=== PATIENT | female | born 1995 | race Two or more races ===

== ENCOUNTER 2021-05-27 08:00 | Outpatient (CLI) | payer OTHER | END 2021-05-27 23:59 | disposition home or self-care (01) | LOC: LAB.N 08:00 | PROVIDERS: ATTEND Physician Assistant Medical | DX: R05 Cough (principal); Z20.822 Contact with and (suspected) exposure to COVID-19 ==

== ENCOUNTER 2022-09-24 14:30 | Outpatient (CLI) | payer OTHER ==
[2022-09-24 15:12] VITALS: BP 104/62
--- NOTE | 2022-09-24 15:12 | SLEEP CARE CONSULTATION ---
Information from patient questionnaire entered by Pastora Wesley. I have reviewed and concur with the information entered by Pastora Wesley. This document represents the service I personally performed and the decisions made by me, Bisi Junior ARNP. History of Present Illness Service Date and Time: 09/24/2022 1430 Reason for Visit: New patient Chief Complaint: reports: Unrefreshed sleep, Snoring, Excessive daytime sleepiness, Observed pauses in breathing, Fatigue Date of Onset: 4 years Usual bedtime: 9 pm weekdays; weekends midnight Time it takes to fall asleep: 30 minutes Snores at night: Yes Observed to quit breathing while asleep: Yes Sleeps alone due to snoring: No Number of times waking at night: not sure- 1-5 times on average Reasons for waking at night: reports: Choking (3-4 times a week), Other (strange/intense dreams). denies: Snoring, Gasping for air Toss, Turn, or Twitch while sleeping: Yes Recalls having dreams: Yes Usually gets out of bed at: 5 AM on work days; 10 AM on weekends Feels refreshed in the morning: No Morning headache: Yes (3 times a week) Sleepy or fatigued during the day: Yes Ever fallen asleep while driving: No Takes day naps: Yes (weekend usually) Dreams during day naps: Yes Prior sleep studies: No Additional HPI information: I had the pleasure of seeing CAIO RUTHERFORD today regarding the possibility of her having a sleep disorder. Her current complaints are excessive daytime sleepiness, fatigue, observed pauses in breathing, snoring and unrefreshed sleep. She states she is waking up coughing and like she is not getting enough air. She is waking up feeling unrefreshed. She has been told that she snores by her partner. Her partner did wake her up the other night because she has having pauses in breathing followed by shallow breathing. He wanted to know if she was okay. She says her father has severe sleep apnea and is using a PAP machine. She states she does have difficulty swallowing. She states she has to drink water to swallow her food at first or spit out first 1-2 bites. She states her mother has a "twisted esophagus" and has similar difficulties swallowing. - Parasomnia Symptoms Ever been unable to move upon waking from sleep: Yes (2 times a year) Walks in sleep: No Talks in sleep: Yes Ever acted out dreams in sleep: Yes (small movements to thrashing or crying) Ever felt weak in the knees when startled or emotional: Yes (has not fallen to ground) Bothered by creepy, crawly, restless sensations in legs: No Problems with memory or concentration: Yes (both) Subjective Initial Mcrae Sleepiness Scale score: 10 (08/2022) Past Medical History Past Medical History: reports: Anxiety Social History The patient's occupation is a [employer]. Patient is Single and lives in . Have you smoked in the past 12 months: No Alcohol use: Yes Alcohol amount and frequency: 3 drinks weekends Caffeine use: Yes Caffeine amount and frequency: 1 cup coffee daily Family History Family history of sleep disordered breathing: Yes Family Hx Sleep Apnea: Father: Snoring, Sleep apnea - Treated, Sibling: Snoring Allergies and Home Medications Drug allergies reviewed: Yes (NKDA) Home medication list reviewed: Yes Allergy and home medication list: Lexapro, 10 mg daily Review of Systems Weight gain over past 5 years: 10 Cardiovascular: reports: irregular heart rate or pulse (daily, may be associated with anxiety; only happens when walking). denies: high blood pressure Respiratory: denies: shortness of breath Gastrointestinal: reports: difficulty swallowing (when eating; mother has twisted esophagus) Neurological: denies: headaches, head trauma Psychiatric: reports: anxiety, depression. denies: Attention Deficit Hyperactivity Ear/Nose/Throat: reports: wisdom teeth removed. denies: tonsillectomy Endocrine: denies: thyroid disease Physical Exam Vital signs obtained and entered by: PASTORA Ramirez MA Blood Pressure: 104/62 (LEFT ARM) Cuff size: regular Heart Rate: 64 O2 Saturation: 99 Height: 5 ft 5 in Weight: 170 lb 12.8 oz Body Mass Index: 28.4 BMI Classification: Overweight Neck circumference: 14.25 Mouth and throat: narrow oropharynx Soft palate: long Hard palate: normal Uvula: normal Uvula visualization: 25% Mallampati Class III Tongue: enlarged in size with teeth escamilla on lateral edges Tonsils: 1+ Neck: normal w/o lymphadenopathy or thyromegaly Heart: regular rate and rhythm Lungs: clear bilaterally Impression and Plan 1. Suspected Obstructive Sleep Apnea-Hypopnea Syndrome, as suggested by a history of loud and irregular snoring, observed cessation of breath while asleep, gasping or choking in sleep, morning headache, unrefreshed sleep, cognitive impairment, and excessive daytime sleepiness. Narrow oropharynx and obesity are common predisposing factors for obstructive sleep apnea-hypopnea syndrome. I recommend proceeding to polysomnography to confirm the diagnosis and to assess severity. If the patient has significant sleep disordered breathing, a manual CPAP titration study will also be performed to find the optimal treatment pressure. I informed the patient of what the sleep studies involve and after some discussion, obtained agreement to proceed. The pathophysiology of obstructive sleep apnea-hypopnea syndrome was discussed with the patient and health risks of cardiovascular and cerebrovascular disease if not treated. Risks of drowsy driving discussed in detail and patient advised to avoid long distance driving and to tack puller machine at the first sign of drowsiness. Patient agreed to plan. * Schedule polysomnography * Avoid long distance driving or driving when feeling sleepy. * Avoid alcohol, sedative and muscle relaxant around bedtime. * Attempt to lose weight. * Review instructions provided by trained office staff on how to prepare for the sleep study. * Return for follow-up after sleep study completed. Counseling Topics: Weight loss health impact Visit Type: In Office Time Spent with Patient (minutes): 31 Provider Statement: I spent 100% of the Face to Face Visit with the patient with greater than 50% spent counseling the patient and coordination of care.
== END 2022-09-24 14:31 | disposition home or self-care (01) ==
LOC: SC 14:30
PROVIDERS: ATTEND Nurse Practitioner Family
DX: R06.83 Snoring (principal); G47.8 Other sleep disorders; R06.81 Apnea, not elsewhere classified; R51.9 Headache, unspecified; G47.10 Hypersomnia, unspecified; R53.83 Other fatigue; E66.3 Overweight; Z68.28 Body mass index [BMI] 28.0-28.9, adult
CPT/HCPCS: 99203; 99212

== ENCOUNTER 2023-01-06 15:17 | Emergency (ER) | payer OTHER ==
[2023-01-06 15:28] LABS: BASOPHILS # (AUTO) 0.1 10^3/uL (0.0-0.1); BASOPHILS % (AUTO) 1.5 %; EOSINOPHILS # (AUTO) 0.6 10^3/uL (0.0-0.7); EOSINOPHILS % (AUTO) 9.2 %; HCT - HEMATOCRIT 41.5 % (37.0-47.0); HGB - HEMOGLOBIN 14.1 g/dL (12.0-16.0); LYMPHOCYTES # (AUTO) 2.3 10^3/uL (1.5-3.5); MEAN CORPUSCULAR HEMOGLOBIN 30.4 pg (27.0-31.0); MEAN CORPUSCULAR VOLUME 89.4 fL (81.0-99.0); MEAN PLATELET VOLUME 9.4 fL (7.9-10.8); MONOCYTES # (AUTO) 0.3 10^3/uL (0.0-1.0); MONOCYTES % (AUTO) 4.2 %; NEUTROPHILS # (AUTO) 2.8 10^3/uL (1.5-6.6); NEUTROPHILS % (AUTO) 46.9 %; PLT - PLATELET COUNT 291 10^3/uL (130-450); RED BLOOD COUNT 4.64 10^6/uL (4.20-5.40); RED CELL DISTRIBUTION WIDTH 12.4 % (12.0-15.0)
[2023-01-06 15:40] LABS: ALBUMIN 4.4 g/dL (3.2-5.5); ALBUMIN/GLOBULIN RATIO 1.3 (1.0-2.2); BILIRUBIN,TOTAL 0.7 mg/dL (0.2-1.0); CALCIUM 8.8 mg/dL (8.5-10.3); CREATININE 0.7 mg/dL (0.4-1.0); POTASSIUM 3.7 mmol/L (3.5-5.0); TOTAL PROTEIN 7.8 g/dL (6.7-8.2)
[2023-01-06] MEDS ORDERED: iohexoL-300 100 ML VIAL ONE (16:39)
--- NOTE | 2023-01-06 16:57 | ED Physician Documentation ---
PD HPI ABD PAIN - Stated complaint Stated Complaint: LOWER RT ABD PX - Chief complaint Chief Complaint: Abd Pain - History obtained from History obtained from: Patient - History of Present Illness Timing - onset: Last night Timing - duration: Days (1) Timing - details: Gradual onset Quality: Aching, Pain Location: RLQ Improved by: Laying still Worsened by: Moving, Palpation Associated symptoms: No: Fever, Vomiting, Diarrhea, Constipation, Melena, Hematochezia - Additional information Additional information: 27-year-old female presents to the emergency department with right lower qu adrant abdominal pain. She states that started as a generalized abdominal ache, points to the periumbilical area, she states that over the last 24 hours has settled in the right lower quadrant. She was seen at the walk-in clinic earlier today. Negative urinalysis and negative hCG. She was sent here for further evaluation. LMP was about 1 month ago. She does not have any surgical history. No nausea or vomiting. Decreased appetite today. No fevers. No chills. No vaginal bleeding or discharge. No STD exposure Review of Systems Constitutional: denies: Fever, Chills Nose: denies: Rhinorrhea / runny nose Cardiac: denies: Chest pain / pressure, Palpitations Respiratory: denies: Dyspnea, Cough GI: denies: Nausea, Vomiting, Diarrhea Skin: denies: Rash Musculoskeletal: denies: Neck pain, Back pain Neurologic: denies: Headache PD PAST MEDICAL HISTORY - Past Medical History Past Medical History: Yes Psych: Depression - Present Medications Home Medications: Ambulatory Orders Medication Instructions Recorded Confirmed Escitalopram [Lexapro] See Rx Instructions .ROUTE .COMPLEX 09/24/22 09/24/22 - Allergies Allergies/Adverse Reactions: Allergies Allergy/AdvReac Type Severity Reaction Status Date / Time No Known Drug Allergies Allergy Verified 01/06/23 15:29 - Living Situation Living Situation: reports: With family Living Arrangement: reports: At home - Social History Does the pt have substance abuse?: No - Family History Family history: reports: Non contributory PD ED PE NORMAL - Vitals Vital signs reviewed: Yes - General General: Alert and oriented X 3, No acute distress - HEENT HEENT: PERRL, Moist mucous membranes - Neck Neck: Supple, no meningeal sign - Cardiac Cardiac: RRR, Strong equal pulses - Respiratory Respiratory: No respiratory distress, Clear bilaterally - Abdomen Abdomen: Soft, Non distended, Other (Tender to palpation right lower quadrant at McBurney's point. No peritoneal signs. Positive Rovsing. Positive obturator.) - Back Back: No CVA TTP, No spinal TTP - Derm Derm: Warm and dry - Extremities Extremities: No edema, No calf tenderness / cord - Neuro Neuro: Alert and oriented X 3 - Psych Psych: Normal mood, Normal affect Results - Vitals Vitals: Vital Signs - 24 hr 01/06/23 01/06/23 15:26 18:26 Temperature 36.9 C Heart Rate 64 64 Respiratory 16 14 Rate Blood Pressure 112/62 102/67 O2 Saturation 100 100 Oxygen O2 Source Room air - Labs Labs: Laboratory Tests 01/06/23 01/06/23 01/06/23 15:23 15:23 17:10 WBC 6.0 RBC 4.64 Hgb 14.1 Hct 41.5 MCV 89.4 MCH 30.4 MCHC 34.0 RDW 12.4 Plt Count 291 MPV 9.4 Neut # (Auto) 2.8 Lymph # (Auto) 2.3 Petroleum # (Auto) 0.3 Eos # (Auto) 0.6 Baso # (Auto) 0.1 Absolute Nucleated RBC 0.00 Nucleated RBC % 0.0 Sodium 136 Potassium 3.7 Chloride 104 Carbon Dioxide 24 Anion Gap 8.0 BUN 15 Creatinine 0.7 Estimated GFR (MDRD) 100 Glucose 92 Calcium 8.8 Total Bilirubin 0.7 AST 18 ALT 19 Alkaline Phosphatase 60 Total Protein 7.8 Albumin 4.4 Globulin 3.4 Albumin/Globulin Ratio 1.3 Lipase 41 Urine Color YELLOW Urine Clarity CLEAR Urine pH 5.5 Ur Specific [place] >=1.030 H Urine Protein NEGATIVE Urine Glucose (UA) NEGATIVE Urine Ketones 15 H Urine Occult Blood MODERATE H Urine Nitrite NEGATIVE Urine Bilirubin NEGATIVE Urine Urobilinogen 0.2 (NORMAL) Ur Leukocyte Esterase NEGATIVE Urine RBC 0-5 Urine WBC 4-5 Ur Squamous Epith Cells FEW Squamous Urine Bacteria Many H Ur Microscopic Review INDICATED Urine Culture Comments NOT INDICATED Urine HCG, Qual 01/06/23 17:10 WBC RBC Hgb Hct MCV MCH MCHC RDW Plt Count MPV Neut # (Auto) Lymph # (Auto) Petroleum # (Auto) Eos # (Auto) Baso # (Auto) Absolute Nucleated RBC Nucleated RBC % Sodium Potassium Chloride Carbon Dioxide Anion Gap BUN Creatinine Estimated GFR (MDRD) Glucose Calcium Total Bilirubin AST ALT Alkaline Phosphatase Total Protein Albumin Globulin Albumin/Globulin Ratio Lipase Urine Color Urine Clarity Urine pH Ur Specific [place] Urine Protein Urine Glucose (UA) Urine Ketones Urine Occult Blood Urine Nitrite Urine Bilirubin Urine Urobilinogen Ur Leukocyte Esterase Urine RBC Urine WBC Ur Squamous Epith Cells Urine Bacteria Ur Microscopic Review Urine Culture Comments Urine HCG, Qual NEGATIVE - Rads (name of study) CT abdomen pelvis Relevant Findings:: Final report received, See rad report Pelvic ultrasound Relevant Findings:: Final report received, See rad report PD Medical Decision Making - ED course Complexity details: reviewed results, re-evaluated patient (Abdomen is soft, nontender nondistended on serial exam), considered differential, d/w patient ED course: 27-year-old female with abdominal pain, unclear etiology. CBC, ER abdominal panel and urinalysis do not show any significant abnormalities. There are bacteria in her urine, but she does not have any UTI symptoms. And there are squamous cells, likely contaminant. Her CT scan shows a normal appendix. Her pelvic ultrasound does show a 2.3 cm left ovarian dominant cyst. Right ovary unremarkable. There is a small amount of free fluid in the pelvis. Patient is very well-appearing, nontoxic. Afebrile. Tolerating p.o. without difficulty. We will have her follow-up with her doctor for further care and return if she worsens. Patient counseled regarding signs and symptoms for which I believe and urgent re-evaluation would be necessary. Patient with good understanding of and agreement to plan and is comfortable going home at this time This document was made in part using voice recognition software. While efforts are made to proofread this document, sound alike and grammatical errors may occur. Departure - Departure Disposition: 01 Home, Self Care Clinical Impression: Abdominal pain Qualifiers: Abdominal location: unspecified location Qualified Code(s): R10.9 - Unspecified abdominal pain Condition: Good Instructions: ED Abdominal Pain Female Non-Specific Abdominal Pain Follow-Up: JC QUINONES MD [Primary Care Provider] - Within 1 week Comments: Please follow-up with your doctor for further care. Your abdomen pelvis CT show a normal appendix. Your ultrasound shows a 2 cm left-sided ovarian cyst and a small amount of free fluid in your pelvis. As well that you had a small cyst rupture that is causing your abdominal/pelvic pain. Your laboratory testing is normal. Your urinalysis does not show any acute abnormalities either. This should improve over the next 1 to 2 days. Please return if you worsen. Discharge Date/Time: 01/06/23 19:22
[2023-01-06 17:30] LABS: BILIRUBIN,URINE NEGATIVE (NEGATIVE); GLUCOSE, URINE (UA) NEGATIVE (NEGATIVE); KETONES,URINE (UA) 15 mg/dL (NEGATIVE); LEUKOCYTE ESTERASE, URINE NEGATIVE (NEGATIVE); NITRITE,URINE NEGATIVE (NEGATIVE); OCCULT BLOOD,URINE MODERATE (NEGATIVE); PH,URINE 5.5 PH (5.0-7.5); PROTEIN,URINE NEGATIVE (NEGATIVE); UROBILINOGEN,URINE 0.2 (NORMAL) E.U./dL (NORMAL)
[2023-01-06 17:34] LABS: HCG UR QUAL NEGATIVE
[2023-01-06 17:56] LABS: CLARITY,URINE CLEAR (CLEAR)
[2023-01-06 17:58] LABS: BACTERIA,URINE Many /HPF (None Seen); RBC,URINE 0-5 /HPF (0-5); SQUAMOUS EPITHELIAL CELL,UR FEW Squamous (<= Few)
--- NOTE | 2023-01-06 18:06 | CT Report ---
PROCEDURE: ABDOMEN/PELVIS W INDICATIONS: RLQ abd pain CONTRAST: 100mL Omni 300 TECHNIQUE: After the administration of IV contrast, 5 mm thick sections acquired from the diaphragms to the symp hysis. 5 mm thick coronal and sagittal reformats were acquired. For radiation dose reduction, the f ollowing was used: automated exposure control, adjustment of mA and/or kV according to patient size. COMPARISON: None. FINDINGS: Image quality: Excellent. ABDOMEN: Lung bases: Lung bases are clear. Heart size is normal. Small hiatal hernia. Solid organs: Liver and spleen are normal in size and enhancement. Gallbladder Biliary system is no n dilated. Pancreas enhances normally. No adrenal nodules. Kidneys demonstrate normal size and enh ancement, without hydronephrosis. Peritoneum and bowel: Appendix is retrocecal and demonstrates normal caliber measuring 4 mm. There i s air collection within the appendix. Bowel loops demonstrate normal wall thickness and caliber. No free fluid or air. Nodes and vessels: No retroperitoneal or mesenteric adenopathy by size criteria. Aorta and inferior vena cava are normal in size. Miscellaneous: No ventral hernias. PELVIS: Genitourinary: Bladder wall thickness is normal. Uterus and ovaries are normal. There is a trace am ount of free fluid in the cul-de-sac. Miscellaneous: No inguinal hernias or adenopathy. Bones: No suspicious bony lesions. No vertebral body compression fractures. IMPRESSION: 1. A cause for right lower quadrant pain is not identified on CT. 2. Normal appendix. 2. A trace amount of free fluid in the cul-de-sac, which is probably within physiological limits. If there is clinical suspicion for gynecological cause of right lower quadrant pain, pelvic ultrasound c an be obtained. Reviewed by: Elina Mora MD on 01/06/2023 5:05 PM NEGIN Approved by: Elina Mora MD on 01/06/2023 5:05 PM AKDT Station ID: [id number]
[2023-01-06 18:26] VITALS: BP 102/67
[2023-01-06] MEDS: iohexoL-300 100 ML VIAL IVP ONE (19:13)
--- NOTE | 2023-01-06 19:39 | Ultrasound Report ---
PROCEDURE: Pelvic w/Doppler Limited INDICATIONS: pelvic pain, R TECHNIQUE: Real-time transabdominal scanning was performed of the pelvic organs, with image documentation. Dopp ler interrogation was performed of the ovaries bilaterally. COMPARISON: 01/06/2023 FINDINGS: The uterine body measures 3.4 x 5.0 x 7.5 cm. No uterine mass. Left ovary measures 1.9 x 3.1 x 4.0 cm . Left ovarian dominant cyst measuring 2.3 cm with other smaller subcentimeter cysts present. Right o vary unremarkable measuring 2.0 x 3.0 x 3.6 cm. No findings of torsion in either ovary. Vascular Dopp ler signal is demonstrated to both ovaries. Trace physiologic free fluid. IMPRESSION: Normal study. Reviewed by: Josué Salcido MD on 01/06/2023 7:38 PM PDT Approved by: Josué Salcido MD on 01/06/2023 7:38 PM PDT Station ID: [id number]
== END 2023-01-06 19:22 | disposition home or self-care (01) ==
LOC: ED 15:17
DX: R10.31 Right lower quadrant pain (principal)
CPT/HCPCS: 36415; 74177; 76856; 80053; 81001; 81025; 83690; 85025; 93976; 99283; 99284; Q9967; 81003; 87086

== ENCOUNTER 2024-02-04 12:53 | Emergency (ER) | payer OTHER ==
[2024-02-04 13:05] VITALS: BP 119/59; O2SAT 100
[2024-02-04 13:21] LABS: HCG UR QUAL NEGATIVE
--- NOTE | 2024-02-04 14:54 | Ultrasound Report ---
PROCEDURE: Pelvic w/Doppler Complete INDICATIONS: pelvic pain, R TECHNIQUE: Real-time scanning was performed of the pelvic organs, with image documentation. Doppler interrogati on was performed of the ovaries bilaterally. COMPARISON: 01/06/2023 FINDINGS: Uterus: Uterus is anteverted and normal in size at 7.6 x 4.0 x 5.0 cm. The myometrium is homogeneou s. The endometrium measures 7.3 mm in combined thickness. No uterine fibroids. Ovaries: The right ovary measures 4.2 x 2.3 x 2.4 cm, with a calculated ovarian volume of 12.1 cc. The left ovary measures 4.1 x 2.0 x 2.9 cm, with a calculated ovarian volume of 12.4 cc. Appropriate blood flow to the ovaries with Doppler interrogation. Less than 12 follicles can be seen in each o vary. No adnexal masses are seen. No cystic lesions measuring greater than 3 cm. Other: No pathologic free abdominal or pelvic fluid. IMPRESSION: Ovaries are normal in appearance with normal Doppler blood flow. Uterus is normal in appearance. Reviewed by: Caleb Gloria MD on 02/04/2024 2:53 PM PDT Approved by: Caleb Gloria MD on 02/04/2024 2:53 PM PDT Station ID: [id number]
[2024-02-04 15:08] LABS: BILIRUBIN,URINE NEGATIVE (NEGATIVE); GLUCOSE, URINE (UA) NEGATIVE (NEGATIVE); KETONES,URINE (UA) 40 mg/dL (NEGATIVE); LEUKOCYTE ESTERASE, URINE NEGATIVE (NEGATIVE); NITRITE,URINE NEGATIVE (NEGATIVE); OCCULT BLOOD,URINE LARGE (NEGATIVE); PROTEIN,URINE NEGATIVE (NEGATIVE); UROBILINOGEN,URINE 0.2 (NORMAL) E.U./dL (NORMAL)
[2024-02-04 15:09] LABS: CLARITY,URINE HAZY (CLEAR)
[2024-02-04 15:22] LABS: BACTERIA,URINE Rare /HPF (None Seen); SQUAMOUS EPITHELIAL CELL,UR FEW Squamous (<= Few); WBC,URINE 0-3 /HPF (0-5)
--- NOTE | 2024-02-04 15:22 | ED Physician Documentation ---
PD HPI ABD PAIN - Stated complaint Stated Complaint: - Chief complaint Chief Complaint: Abd Pain - History obtained from History obtained from: Patient - Additional information Additional information: 28yo with hx ovarian cysts. Sudden onset r pelvic pain at 0800 today, assoc with vomiting. No fever. No urinary c/o. Has had irregular menses lately. No contraception. PD PAST MEDICAL HISTORY - Past Medical History Past Medical History: Yes Psych: Depression - Past Surgical History Past Surgical History: No - Present Medications Home Medications: Ambulatory Orders Medication Instructions Recorded Confirmed Escitalopram [Lexapro] See Rx Instructions .ROUTE .COMPLEX 09/24/22 09/24/22 HYDROcod/ACETAM 5/325 [Amity 5/325] 1 - 2 tab PO Q6H PRN #7 tablet 02/04/24 Ondansetron Odt [Zofran] 4 mg TL Q6H PRN #10 tablet 02/04/24 - Allergies Allergies/Adverse Reactions: Allergies Allergy/AdvReac Type Severity Reaction Status Date / Time No Known Drug Allergies Allergy Verified 02/04/24 12:54 - Social History Does the pt smoke?: No Smoking Status: Never smoker Does the pt drink ETOH?: No Does the pt have substance abuse?: No - Immunizations Immunizations are current?: Yes - POLST Patient has POLST: No PD ED PE NORMAL - Vitals Vital signs reviewed: Yes - General General: Alert and oriented X 3, No acute distress - Abdomen Abdomen: Normal bowel sounds, Soft, Non tender Results - Vitals Vitals: Vital Signs - 24 hr 02/04/24 12:55 Temperature 36.8 C Heart Rate 75 Respiratory 16 Rate Blood Pressure 119/59 L O2 Saturation 100 Oxygen O2 Source Room air - Labs Labs: Laboratory Tests 02/04/24 02/04/24 13:10 13:10 Urine Color YELLOW Urine Clarity HAZY Urine pH 6.0 Ur Specific [place] 1.020 Urine Protein NEGATIVE Urine Glucose (UA) NEGATIVE Urine Ketones 40 H Urine Occult Blood LARGE H Urine Nitrite NEGATIVE Urine Bilirubin NEGATIVE Urine Urobilinogen 0.2 (NORMAL) Ur Leukocyte Esterase NEGATIVE Urine RBC 6-10 H Urine WBC 0-3 Ur Squamous Epith Cells FEW Squamous Urine Bacteria Rare Ur Microscopic Review INDICATED Urine Culture Comments NOT INDICATED Urine HCG, Qual NEGATIVE - Rads (name of study) pelvic sono Relevant Findings:: Final report received PD Medical Decision Making - ED course ED course: She presents with improved sudden onset pelvic pain with negative ultrasonography. Could be ruptured cyst? Urinalysis having blood in it and test was negative. She has a benign exam. Does not seem like appendicitis given the time course and improvement. Given close return precautions. Departure - Departure Disposition: 01 Home, Self Care Clinical Impression: Pelvic pain in female Condition: Good Record reviewed to determine appropriate education?: Yes Instructions: ED Pelvic Pain [facility] Follow-Up: [facility] [Provider Group] Prescriptions: HYDROcod/ACETAM 5/325 [Amity 5/325] 1 - 2 tab PO Q6H PRN #7 tablet PRN Reason: Pain Ondansetron Odt [Zofran] 4 mg TL Q6H PRN #10 tablet PRN Reason: Nausea / Vomiting Comments: The ultrasound is normal so suspect cyst already ruptured. Return if worse or not better over the next 24 hours. Followup with lead network architect regarding irregular menses. [facility]: PCP List Discharge Date/Time: 02/04/24 15:39
[2024-02-04] MEDS: KETOROLAC 60 MG/2 ML VIAL IM STA (15:26)
[2024-02-04] MEDS: ONDANSETRON ODT 4 MG TABLET TL STA (15:26)
== END 2024-02-04 15:39 | disposition home or self-care (01) ==
LOC: ED 12:53
DX: R10.2 Pelvic and perineal pain (principal); Z79.899 Other long term (current) drug therapy
CPT/HCPCS: 76856; 81001; 81025; 93975; 96372; 99284; Q0162; 81003; 87086

== ENCOUNTER 2025-08-24 23:12 | Inpatient (IN) ==
[2025-08-25] MEDS ORDERED: CARBOPROST TROMETHAMINE 250 MCG/ML VIAL IM PRN
[2025-08-25] MEDS ORDERED: DOCUSATE SODIUM 100 MG CAPSULE PO PRN
[2025-08-25] MEDS ORDERED: SODIUM CHLORIDE FLUSH 0.9% 10 ML SYRINGE IVP PRN
[2025-08-25] MEDS ORDERED: TERBUTALINE 1 MG/ML VIAL SUBQ PRN
[2025-08-25] MEDS ORDERED: ACETAMINOPHEN 500 MG TABLET PO PRN
[2025-08-25] MEDS ORDERED: SODIUM CHLORIDE FLUSH 0.9% 10 ML SYRINGE IVP SCH
[2025-08-25] MEDS ORDERED: OXYTOCIN 10 UNIT/ML VIAL IM PRN
[2025-08-25] MEDS ORDERED: ONDANSETRON ODT 4 MG TABLET PO PRN
[2025-08-25] MEDS ORDERED: TRANEXAMIC ACID IN NACL 1,000 MG/100 ML BAG IV PRN
--- NOTE | 2025-08-25 00:08 | PROVIDER PROGRESS NOTE ---
HPI Current : Vital Signs Temperature 36.6 C 08/24/25 23:30 Pulse Rate 82 08/24/25 23:30 Respiratory Rate 20 08/24/25 23:30 Blood Pressure 106/79 08/24/25 23:30 O2 Saturation 100 08/24/25 23:30 Plan Plan: 29 yo @ 39+2 weeks gestation presents to L&D for triage. was 3/80 in clinic earlier today. Now 4/90/-2, intact by provider exam. Reactive NST. FHR 145, moderate variability, + accelerations, - decelerations. CTX q2-3 palpating strongly. Rating pain 7/10vps. Will admit as inpatient.
--- NOTE | 2025-08-25 00:13 | HISTORY & PHYSICAL EXAMINATION ---
Admit History Smoking Status: Never smoker Other Maternal History Other Maternal History: HPI: This 29 yo @39+2 weeks by LMP and confirmed by 9+1 week ultrasound. She came in for her clinic appointment and had her membranes swept and she was 2-3cm. Since getting her membranes swept, her contractions had become stronger and closer together. Upon arrival her cervix was 4/90/-2 and vertex with intact membranes. She was given the option to return home to labor however she feels she is in greater need of labor support as offered on the unit on the birthplace. She is supported by her and her Mother who recently traveled [place] the [place]. Understands from her participation in group that the risks of labor include but are not limited to section, prolonged labor, vacuum extraction, episotomy, hemorrhage, and additional risks exist re: prolonged second stage related to extraction. Reviewed back up OBGYN is available for consultations, emergency interventions and transfer of care if indicted. She has been a patient of [facility] for the duration of her which has remained overall, uncomplicated. However, she had surgery on her right foot in early and then broke her right ankle earlier this week and is now back in a walking boot. ROS: No Headache, visual changes or right upper quadrant abdominal pain. Denies significant N/V. Denies urinary urgency or dysuria. All other symptoms reviewed and were negative except per HPI. In the event of an emergency, accepts the administration of blood products. Recent BP: 106/79 Labs: pending Last u/s EFW: FAS 29% Total maternal weight gain: 20# Group participant In the event of an emergency, ACCEPTS the administration of blood products OB hx:G1: current -IT's A [place] - [place]. Medical Hx: PTSD, Depression/anxiety Surgical Hx: foot surgery (recent) in a walking boot at 16+1 weeks. Social Hx: Monogamous with male partner [place] who is currently deployed. Stopped drinking alcohol due to . Denies current use of tobacco, marijuana or other recreational drugs. Reports that she is safe in current relationship. Family Hx: No significant. Denies family history of congenital anomalies, Cystic Fibrosis or chromosomal abnormalities. Allergies:NKDA Medications: mag oxide, PNV, LDASA, iron, fish oil, calcium PROBLEMS: Heart palpitations- Bardy monitor ordered 03/16, Recurrent headaches in late afternoon, no prolonged screen time. LDASA recommended to take in early afternoon. Reglan prescribed for headaches and associated nausea as well. Neck stiffness, scheduling massages, not interested in PT as of 03/16. -Right Foot surgery early February, in a walking boot @ 16 week appointment. Then Broke right ankle by otherwise non-traumatic fall 08/22/2025 @ 39 weeks gestation. Back in walking boot and very unhappy about it. LMP:11/23/24 SANAZ by LMP: 08/30/25 U/S: @ 9.1wks c/w LMP dating (SANAZ by U/S 09/03/2025) Final SANAZ: 08/30/2025 Pre- weight:170 BMI:28.3 Blood type: A positive Antibody screen: negative CBC: NVH280 HCT38.3 HGB 13.0 rubella: Immune VZV: Immune HBsAg: Megative HepC: NR RPR/AB-EIA: NR HIV: NR Flu: 08/07/2025 COVID: x 1 J&J in 2020 declines 08/07/2025 PAP:01/30/2025 normal GC/CT: neg HSV: denies in self and partner Genetic Testing:NIPT - Negative; AFP not done FAS: 04/27/2025 incomplete visualization of several structures. Placenta: posterior, no previa Cord: 3VC GILBERTO: 12.7cm EFW: 444g (29%tile) Follow up FAS 05/22/2025 WNL -Reevaluation of anatomic structures not well visualized on the prior study appear to be normal. 50gm GCT: 161 elevated 3 hr GTT: 86/193/98/117 not diagnostic of GDM with only one elevated value TDAP: 06/15 Breast Pump:06/15 3rd trimester RPR NR RSV 08/07/2025 GBS: 08/07/2025- NEGATIVE Delivery plan: okay with epidural and all intervention options as her pain progresses. contraception: Declining prescription methods/ LARCs at time of labor admission. Physical exam: Normocephalic, atraumatic No increased work of breathing. Abdomen gravid, soft, nontender. EFW 3600 FHR baseline 150, moderate variability, + accelerations, no decelerations Contractions palpate moderate every 2-4 minutes with soft resting tone SVE 4/90/-1, vertex, membranes intact Bilateral LE's no edema Mood is good. Assessment: 29 yo @ 39+2 weeks gestation by 9 wk U/S Early labor desiring support at [facility] FHR 150 Cat I GBS NEG Plan: Admit to [facility] Will offer both AROM for augmentation or expectant management Intermittent heart rate auscultation until continuos EFM indicated. Okay for NST q2 hours or as frequent as nursing team prefers. Jacuzzi PRN. Nitrous oxide PRN. Epidural PRN Maternal Request. Anticipate . HPI Current : Vital Signs Temperature 36.6 C 08/24/25 23:30 Pulse Rate 82 08/24/25 23:30 Respiratory Rate 20 08/24/25 23:30 Blood Pressure 106/79 08/24/25 23:30 O2 Saturation 100 08/24/25 23:30 Meds/Allgy Home Medications Ambulatory Orders Medication Instructions Recorded Confirmed magnesium oxide 420 mg PO QDAY 01/20/2507/28 vits no.126-ferrous fum tab PO 01/20/2508/24 28 mg iron-folic acid 800 mcg tablet (Classic ) pyridoxine (vitamin B6) 25 mg 25 mg PO TID 01/20/25 tablet aspirin 81 mg tablet 81 mg PO QDAY 03/16/2508/24 metoclopramide HCl 5 mg tablet 5 mg PO Q6H PRN nausea and 03/16/25 08/24/25 vomiting #90 tabs ascorbate calcium (vitamin C) PO 06/15/25 08/24/25 ferrous sulfate [Iron (ferrous PO 06/15/25 08/24/25 sulfate)] Allergies Allergies Allergy/AdvReac Type Severity Reaction Status Date / Time adhesive tape Allergy Mild Itching Verified 08/23/25 10:15 PFSH Active Problems All Active Problems (Updated 08/25/25 @ 00:03 by Ramonita Armstrong [facility]) 39 weeks gestation of (Acute) Fall from slip, trip, or stumble (Acute) (Acute) Fracture of distal end of fibula (Acute) Abnormal glucose tolerance affecting , antepartum (Acute) Irregular heart beat (Acute) Positive test (Acute) Supervision of normal (Acute) Anxiety (Acute) Depression (Acute) PTSD (post-traumatic stress disorder) (Acute) Surgical History Surgical History H/O foot surgery Social History Social History (Updated 06/15/25 @ 11:16 by Maria G Ortega MA) Smoking Status: Never smoker Do you vape?: No Living arrangement: At home Living Condition: With family Do you feel safe in your home environment?: Yes History of physical, verbal, emotional, or financial abuse?: No ETOH Use: None Substance Use: denies use POLST Patient has POLST: No Physical Abdominal Exam Vital Signs: Temp Pulse Resp BP Pulse Ox 36.6 C 82 20 106/79 100 08/24/25 23:30 08/24/25 23:30 08/24/25 23:30 08/24/25 23:30 08/24/25 23:30 Plan for Labor Plan For Labor I expect patient to be DC'd or transferred within 96 hours.: Yes
--- OUTSIDE RECORDS SUMMARY | 2025-08-25 00:26 | EXTERNAL MEDICAL SUMMARY RPT | Continuity of Care Document ---
Author Organization [place] Address [address] [place] [id number] Phone Problems date description facility 2025-05-30 10:05 Encounter for superv ision of normal , unspecified, unspecified trimester [facility] 2025-05-31 00:03 Encounter for superv ision of normal , unspecified, unspecified trimester [facility] 2025-06-01 07:59 Abnormal glucose complicating p [facility]nancy [facility] 2025-06-01 11:55 Encounter for superv ision of normal , unspecified, unspecified [facility] 2025-06-02 00:03 [facility]normal glucose [facility]ating [facility] 2025-06-15 10:59 Encounter for immunization [facility] 2025-06-15 11:29 Encounter for immunization [facility] 2025-06-19 08:04 Encounter for immunization [facility] 2025-06-19 08:05 Maternal care for br eech presentation, not applicable or unspecified [facility] 2025-06-19 08:05 Abnormal glucose complicating p [facility] 2025-06-19 08:05 Encounter for immunization [facility] 2025-06-19 08:05 29 weeks gestation of [facility] 2025-07-05 11:10 Cardiac arrhythmia, unspecified [facility] 2025-07-19 09:18 Cardiac arrhythmia, unspecified [facility] 2025-07-19 14:05 Other specified dise ases and conditions complicating [facility] 2025-08-07 16:21 Encounter for immunization [facility] 2025-08-08 00:01 Encounter for immunization [facility] 2025-08-08 11:56 Encounter for screeni ng for Streptococcus B [facility] 2025-08-09 07:49 Encounter for screeni ng for Streptococcus B [facility] 2025-08-18 10:11 Maternal care for ab normalities of the heart rate or rhythm, third trimester, not applicable or unspecified [facility] 2025-08-18 10:11 Encounter for immunization [facility] 2025-08-21 07:11 Abnormal glucose complicating p regnancy [facility] 2025-08-22 09:13 Decreased move ments, third trimester, not applicable or unspecified [facility] 2025-08-25 00:13 39 weeks gestation of [facility] 2025-08-25 00:14 39 weeks gestation of [facility] Results/Labs test date facility value unit notes Result panel 1 HGB - HEMOGLOBIN 2025-05-30 11:13 [facility] 11.9 g/dl (missing) RUBELLA IgG 2025-05-30 11:13 [facility] 13 iu/ml RUBELLA IGG REFERENCE RANGE: NON-IMMUNE <10 IU/mL EQUIVOCAL 10-14.9 IU/mL IMMUNE >14.9 IU/mL RED CELL DISTRIBUTION WIDTH 2025-05-30 11:13 [facility] 13.2 % (missing) GLUCOSE,1H PP 50GM DOSE 2025-05-30 11:13 [facility] 161 mg/dl 50g Challenge 1 hr post Glucose < 140 mg/dL Reference: [place] As of April 2023 testing method has changed, this may include reference ranges. WEIGHT 2025-05-30 11:13 [facility] 171 lbs (missing) AFP VALUE 2025-05-30 11:13 [facility] 180.0 ng/ml (missing) GEST. AGE ON COLLECTION DATE 2025-05-30 11:13 [facility] 26.9 weeks (missing) PLT - PLATELET COUNT 2025-05-30 11:13 [facility] 260 10 3/ul (missing) RED BLOOD COUNT 2025-05-30 11:13 [facility] 3.73 10 6/ul (missing) MATERNAL AGE AT SANAZ 2025-05-30 11:13 [facility] 30.9 yr (missing) MEAN CORPUSCULAR HEMOGLOBIN 2025-05-30 11:13 [facility] 31.9 pg (missing) MEAN CORPUSCULAR HGB CONC 2025-05-30 11:13 [facility] 34.2 g/dl (missing) HCT - HEMATOCRIT 2025-05-30 11:13 [facility] 34.8 % (missing) WHITE BLOOD COUNT 2025-05-30 11:13 [facility] 9.3 x10 3/ul (missing) MEAN PLATELET VOLUME 2025-05-30 11:13 [facility] 9.7 fl (missing) MEAN CORPUSCULAR VOLUME 2025-05-30 11:13 [facility] 93.3 fl (missing) INTERPRETATION 2025-05-30 11:13 [facility] Comment (missing) Interpretation: An interpretation CANNOT be provided for this patient due to one of the following reasons: 1. Gestational age is <15 weeks. Please submit a second sample at the optimum gestational age for screening (16-18 weeks). OR 2. Gestational age is greater than 23 weeks. COMMENTS 2025-05-30 11:13 [facility] Comment (missing) Marlene Sandra, Ph.D., [facility] Director References: Available Upon Request. Multiples Of Median Cutoffs For AFP Elevations Serrano 2.5 Black 2.8 IDD 2.0 Twins 4.5 Abbreviation Definitions IDD - Insulin Dep Diabetes OSBR - Open Spina Bifida Risk For further inquiries contact [facility] at [phone]. This test was developed and its performance characteristics determined by [employer]. It has not been cleared or approved by the Food and Drug Administration. Performed at: [place] [place], [place] [id number] [employer]: Porsha Steele [facility], Phone: [phone] GESTAT. AGE METHOD 2025-05-30 11:13 [facility] LMP (missing) 11/23/2024 Recalculations are not recommended when gestational dating by LMP and ultrasound are within 10 days. HBsAG SCREEN 2025-05-30 11:13 [facility] Negative (missing) Performed at: [address] [id number] [employer]: Tremaine Louis MD, Phone: [phone] INSULIN DEP DIABETES 2025-05-30 11:13 [facility] No (missing) (missing) MULTIPLE GESTATION 2025-05-30 11:13 [facility] No (missing) (missing) HIV SCREEN 4TH GENERATION 2025-05-30 11:13 [facility] Non Reactive (missing) HIV-1/HIV-2 antibodies and HIV-1 p24 antigen were NOT detected. There is no laboratory evidence of HIV infection. HIV Negative Performed at: [address], [place], [place] [id number] [employer]: Tremaine oLuis MD, Phone: [phone] RPR 2025-05-30 11:13 [facility] Non Reactive (missing) Performed at: [address], [place], [place] [id number] [employer]: Tremaine Louis MD, Phone: [phone] RACE 2025-05-30 11:13 [facility] Other (missing) (missing) VARICELLA-ZOSTER AB IGG 2025-05-30 11:13 [facility] Reactive (missing) Please note reference interval change A Reactive result is considered evidence of immunity to VZV. Reactive indicates that VZV IgG was detected consistent with previous infection and/or vaccination. A Non Reactive result indicates that VZV IgG was not detected suggesting that immunity has not been acquired. Performed at: [address], [place], [place] [id number] [employer]: Tremaine Louis MD, Phone: [phone] RESULTS 2025-05-30 11:13 [facility] Report (missing) N [id number] LMP 16.1 [id number] 1 16 N [id number] 1 N 171 N N N N N AFP MOM 2025-05-30 11:13 [facility] See interpretati on. (missing) (missing) OPEN SPINA BIFIDA RISK 1 IN 2025-05-30 11:13 Media[facility] See interpretati on. (missing) (missing) TEST RESULTS 2025-05-30 11:13 Media[facility] See interpretati on. (missing) (missing) Result panel 2 GLUCOSE TOLERANCE 3HR 2025-06-01 08:09 [facility] (missing) (missing) GLU FAST 86 mg/dL Col Time:0809 GLU 1H 193 mg/dL Col Time:09 GLU 2H 98 mg/dL Col Time:1009 GLU 3H 117 mg/dL Col Time:1106 DOSE 100 g Col Time:808 Glucose Concentration Guidelines Fasting <95 mg/dL 1 hr post challenge <180 mg/dL 2 hr post challenge <155 mg/dL 3 hr post challenge <140 mg/dL Glucose concentration greater than or equal to these valuesat TWO or more time points is a positive test. Reference: [facility] Result panel 3 GROUP B STREP PCR 2025-08-08 11:00 [facility] NEGATIVE (missing) (missing) Social History date description facility
[2025-08-25 01:45] LABS: HCT - HEMATOCRIT 37.8 % (37.0-47.0); HGB - HEMOGLOBIN 12.9 g/dL (12.0-16.0); MEAN PLATELET VOLUME 10.9 fL (7.9-10.8); NRBC ABSOLUTE COUNT (AUTO) 0.00 x10^3/uL; NUCLEATED RED BLOOD CELLS AUTO 0.0 /100WBC; PLT - PLATELET COUNT 204 10^3/uL (130-450); RED CELL DISTRIBUTION WIDTH 13.4 % (12.0-15.0)
[2025-08-25 01:58] LABS: ALT ALANINE AMINOTRANSFERASE 35.0 IU/L (10-60); AST ASPARTATE AMINOTRANSFERASE 22.0 IU/L (10-42); BUN - BLOOD UREA NITROGEN 8.0 mg/dL (6-20); CARBON DIOXIDE - CO2 19.0 mmol/L (21-32); CREATININE 0.5 mg/dL (0.6-1.3); GFR - MDRD 145.0 (>89)
[2025-08-25] MEDS: CALCIUM CARBONATE CHEW 500 MG TABLET PO PRN (02:32)
[2025-08-25] MEDS: fentaNYL 100 MCG/2 ML VIAL IVP PRN (05:22)
[2025-08-25] MEDS: LACTATED RINGERS 1,000 ML IV PRN (05:35)
[2025-08-25] MEDS ORDERED: LIDOCAINE 2%-EPI 1:100000 20 ML MDV ONE (05:38)
[2025-08-25] MEDS ORDERED: ROPIVACAINE 0.2% 200 MG/100 ML BAG EP ONE (05:39)
--- NOTE | 2025-08-25 06:20 | ANESTHESIA PROCEDURE NOTE ---
Pre-Anesthesia VS, & Labs Diagnosis Surgical Diagnosis:: labor pain Procedure Procedure: labor epidural Vitals Vital Signs: Temp Pulse Resp BP Pulse Ox 36.6 C 78 18 109/67 100 08/25/25 01:46 08/25/25 01:46 08/25/25 01:46 08/25/25 01:46 08/24/25 23:30 NPO NPO: Other Is Patient ?: Yes Lab Results Current Lab Results: Laboratory Tests 08/25/25 01:20: WBC 11.3 H, RBC 4.12 L, Hgb 12.9, Hct 37.8, MCV 91.7, MCH 31.3 H , MCHC 34.1, RDW 13.4, Plt Count 204, MPV 10.9 H, Neut # (Auto) 7.9 H, Lymph # (Auto) 2.4, Noble # (Auto) 0.6, Eos # (Auto) 0.3, Baso # (Auto) 0.1, Absolute Nucleated RBC 0.00, Nucleated RBC % 0.0, Sodium 135, Potassium 3.7, Chloride 109, Carbon Dioxide 19 L, Anion Gap 7.0, BUN 8, Creatinine 0.5 L, Estimated GFR (MDRD) 145, Glucose 101, Calcium 9.0, Total Bilirubin 0.3, AST 22, ALT 35, A lkaline Phosphatase 147 H, Total Protein 6.3 L, Albumin 3.4, Globulin 2.9, Albumin/Globulin Ratio 1.2, Blood Type A POSITIVE, Antibody Screen NEGATIVE 08/25/25 01:20 08/25/25 01:20 Meds/Allgy Home Medications Ambulatory Orders Medication Instructions Recorded Confirmed magnesium oxide 420 mg PO QDAY 01/20/2507/28 vits no.126-ferrous fum tab PO 01/20/2508/24 28 mg iron-folic acid 800 mcg tablet (Classic ) pyridoxine (vitamin B6) 25 mg 25 mg PO TID 01/20/25 tablet aspirin 81 mg tablet 81 mg PO QDAY 03/16/2508/24 metoclopramide HCl 5 mg tablet 5 mg PO Q6H PRN nausea and 03/16/25 08/24/25 vomiting #90 tabs ascorbate calcium (vitamin C) PO 06/15/25 08/24/25 ferrous sulfate [Iron (ferrous PO 06/15/25 08/24/25 sulfate)] Allergies Allergies Allergy/AdvReac Type Severity Reaction Status Date / Time adhesive tape Allergy Mild Itching Verified 08/23/25 10:15 PFS Active Problems All Active Problems (Updated 08/25/25 @ 06:21 by Teresa Mortensen CRNA) 39 weeks gestation of (Acute) (Acute) Abnormal glucose tolerance affecting , antepartum (Acute) Irregular heart beat (Acute) Positive test (Acute) Supervision of normal (Acute) Medical History Medical History (Updated 08/25/25 @ 06:21 by Teresa Mortensen CRNA) PTSD (post-traumatic stress disorder) Fall from slip, trip, or stumble Fracture of distal end of fibula Depression Anxiety Surgical History Surgical History H/O foot surgery Social History Social History Smoking Status: Never smoker Do you dip or chew tobacco?: No Do you vape?: No Living arrangement: At home Living Condition: With family Do you feel safe in your home environment?: Yes History of physical, verbal, emotional, or financial abuse?: No ETOH Use: None Substance Use: denies use POLST Patient has POLST: No POLST CPR Status: Attempt Resuscitation (CPR) Level of Medical Intervention: Full Treatment Anesthesia Exam (Expanded) Exam General: Alert, Oriented x3 and Cooperative Dental: WNL Mouth Openin Fingerbreadth Neck Mobility: Normal Mallampati classification: II Thyromental Distance: 4-6 cm Respiratory: Lungs clear Cardiovascular: Regular rate Exam Exam Vital Signs: Vital Signs x48h Temp Pulse Pulse Resp BP BP Pulse Ox 08/25/25 01:46 36.6 C 78 18 109/67 08/24/25 23:30 36.6 C 82 20 106/79 100 08/24/25 23:29 36.6 C 86 20 106/79 Plan Problem List (1) H/O foot surgery: (2) PTSD (post-traumatic stress disorder): (3) Fall from slip, trip, or stumble: (4) Fracture of distal end of fibula: (5) Depression: (6) Anxiety: Plan Anesthesia Type: Epidural Consent for Procedure(s) Verified and Reviewed: Yes Code Status: Attempt Resuscitation ASA Classification ASA classification: 2-Mild systemic disease Is this case an emergency?: No
[2025-08-25] MEDS ORDERED: LACTATED RINGERS 500 ML IV ONE (06:22)
[2025-08-25] MEDS ORDERED: NALOXONE 0.4 MG/ML VIAL IVP PRN ×2 (06:22→17:20)
[2025-08-25] MEDS ORDERED: METOCLOPRAMIDE 10 MG/2 ML VIAL IVP PRN ×2 (06:22)
[2025-08-25] MEDS ORDERED: NALBUPHINE 10 MG/ML AMP IVP PRN (06:22)
[2025-08-25] MEDS: ONDANSETRON 4 MG/2 ML VIAL IVP PRN (07:43)
--- NOTE | 2025-08-25 08:13 | PROVIDER PROGRESS NOTE ---
Labor Progress Note Labor Progress Note Labor Progress Note/Additional Text: @2719 Patient comfortable with epidural. Struggling with the body dissociation but happy to be without pain. Will plan for SCDs given recent ankle trauma and now immobilization. SVE /-2 AROM, very light meconium. Pediatrics and RN aware. Discussed with patient that pediatrics will be asked to attend delivery due to meconium. Continued category I tracing. Some hypotensive pressures but patient asymptomic and baby continued to be category I. Will evaluate for pitocin augmentation if contractions continue to be spaced out following AROM.
[2025-08-25] MEDS: LACTATED RINGERS 1,000 ML IV SCH (09:56)
[2025-08-25] MEDS: OXYTOCIN/SODIUM CHLORIDE 500 ML IV SCH (10:15)
[2025-08-25] MEDS: ePHEDrine 50 MG/ML VIAL IVP PRN (11:23)
[2025-08-25] MEDS: ROPIVACAINE 0.2% 200 MG/100 ML BAG EP PRN (14:51)
[2025-08-25] MEDS: OXYTOCIN/SODIUM CHLORIDE 500 ML IV PRN (16:45)
[2025-08-25] MEDS: METHYLERGONOVINE 0.2 MG/ML VIAL IM PRN (16:57)
[2025-08-25] MEDS ORDERED: LABETALOL 5 MG/1 ML 20 ML MDV IVP PRN (17:20)
[2025-08-25] MEDS ORDERED: LABETALOL 20 MG/4 ML SYRINGE IVP PRN ×5 (17:20)
[2025-08-25] MEDS ORDERED: hydrALAZINE INJ 20 MG/ML VIAL IVP PRN ×3 (17:20)
[2025-08-25] MEDS ORDERED: OXYTOCIN/SODIUM CHLORIDE 500 ML IV PRN (17:20)
[2025-08-25] MEDS ORDERED: SIMETHICONE CHEW 80 MG TABLET PO PRN (17:20)
--- NOTE | 2025-08-25 17:40 | DELIVERY NOTE ---
OB Labor and Delivery Note Delivery Comments (Free Text/Narrative) Delivery Comments (Free Text/Narrative): This 29 -year-old, G1 P 0 @ 39+1 weeks gestation by 9 week ultrasound/ LMP presented overnight in early labor and stable condition. Cervix was 4/90/-2 and Vertex presentation by exam. GBS negative. FHR pattern demonstrated 135-140 baseline in a category I prior to second stage. Epidural placed upon maternal request. Her labor was augmented with low dose oxytocin, maximum infusion 12 mu/min. Due to her recently broken right ankle and increasing swelling compounding with immobility. GREGORY hose and SCDs were administered following epidural placement. AROM occurred 08/25/2025 @ 08:42. She then progressed to complete/complete 08/25/2025 @ 15:56 and second stage began. : Normal spontaneous vaginal delivery of a viable male infant on 08/25/2025 @ 1635. Baby "Jaun." Nuchal x 1, reduced. After reduction of nuchal cord, attempted delivery of the head was unsuccessful, despite gentle traction of the head. Shoulder dystocia was announced and asked for Shaka position, and attempted rotational maneuvers and removal of posterior shoulder. I attempted to remove the posterior arm, but was unable, although challenging, so I was able to place my fingers under the posterior axilla and deliver the posterior shoulder with gentle traction. The rest of the body delivered thereafter and was placed on mother's chest where she was stimulated but in need of team resuscitation efforts. In total 35 seconds elapse for delivery of head to delivery of body including reduction of nuchal cord. The cord was doubly clamped and cut by delivery provider for a quick hand off for resuscitative support. Pediatrics was present at the time of delivery due to known light meconium stained amniotic fluid. See pediatric and nursing documentation. Apgars 3 & 8 @ 1 & 5 minutes. 3VC. Cord segment collected for cord gasses but not ordered and eventually discarded. Cord blood was obtained. Fundal massage and gently cord traction applied for active management of the third stage, placenta delivered spontaneously and intact and appeared normal @ 1640. QBL 570cc. Placenta was NOT sent to pathology. Pitocin administered via IV for homeostasis and allowed to run freely. Lower uterine segment was not clamping down as well and increasing bleeding. IM Methergine administered x1 dose (see assistant foreman for medication administration). Uterine massage was performed until uterus was deemed firm. weight 3444g Inspection of the perineum noted an first-degree midline laceration. The laceration was repaired under epidural anesthesia with running 3-0 vicryl rapide, repaired in standards fashion under sterile conditions. Upon re- inspection the patient was homeostatic. Uterus again massaged and found to be firm. The maneuvers for the delayed delivery of body as well as resuscitation were reviewed with family and collective care team. Needle and sponge counts were correct. Uterine fundus firm and there is no excessive bleeding. Tissues well approximated. Skin to skin initiated. Family bonding well. Both mother and baby are in stable condition and baby well in mothers arms upon my departure.
[2025-08-25] MEDS: ACETAMINOPHEN 500 MG TABLET PO PRN (18:23)
[2025-08-25] MEDS: IBUPROFEN 600 MG TABLET PO PRN (18:23)
[2025-08-25] MEDS: DOCUSATE SODIUM 100 MG CAPSULE PO SCH (21:47)
[2025-08-26] MEDS: oxyCODONE 5 MG TABLET PO PRN (08:30)
--- NOTE | 2025-08-26 10:33 | Discharge Summary ---
Discharge Summary HOSPITAL COURSE Hospital Course: Date of Admission: 08/25/2025 Date of Discharge: 08/26/2025 Diagnosis on admission: 29 yo @ 39+2 weeks gestation by 9 wk U/S Early labor desiring support at [facility] FHR 150 Cat I GBS NEG Diagnosis on Discharge 29 yo s/p 08/25/2025 @1635 1st degree perineal laceration Increased pain r/t right ankle fracture Otherwise, unremarkable pp course Physical exam: Normocephalic, atraumatic Lungs no increased work to breathing Normal uterine involution, FF below umbilicus Small rubra bleeding minimal perineal discomfort. Bilateral LE's no edema Mood is good. Brief History: This 29 -year-old, G1 P 0 @ 39+1 weeks gestation by 9 week ultrasound/ LMP presented overnight in early labor and stable condition. Cervix was 4/90/-2 and Vertex presentation by exam. GBS negative. FHR pattern demonstrated 135-140 baseline in a category I prior to second stage. Epidural placed upon maternal request. Her labor was augmented with low dose oxytocin, maximum infusion 12 mu/min. Due to her recently broken right ankle and increasing swelling compounding with immobility. GREGORY hose and SCDs were administered following epidural placement. AROM occurred 08/25/2025 @ 08:42. She then progressed to complete/complete 08/25/2025 @ 15:56 and second stage began. : Normal spontaneous vaginal delivery of a viable male on 08/25/2025 @ 1635. Baby "Jaun." Nuchal x 1, reduced. After reduction of nuchal cord, attempted delivery of the head was unsuccessful, despite gentle traction of the head. Shoulder dystocia was announced and asked for Shaka position, and attempted rotational maneuvers and removal of posterior shoulder. I attempted to remove the posterior arm, but was unable, although challenging, so I was able to place my fingers under the posterior axilla and deliver the posterior shoulder with gentle traction. The rest of the body delivered thereafter and was placed on mother's chest where she was stimulated but in need of team resuscitation efforts. In total 35 seconds elapse for delivery of head to delivery of body including reduction of nuchal cord. The cord was doubly clamped and cut by delivery provider for a quick hand off for resuscitative support. Pediatrics was present at the time of delivery due to known light meconium stained amniotic fluid. See pediatric and nursing documentation. Apgars 3 & 8 @ 1 & 5 minutes. 3VC. Cord segment collected for cord gasses but not ordered and eventually discarded. Cord blood was obtained. Fundal massage and gently cord traction applied for active management of the third stage, placenta delivered spontaneously and intact and appeared normal @ 1640. QBL 570cc. Placenta was NOT sent to pathology. Pitocin administered via IV for homeostasis and allowed to run freely. Lower uterine segment was not clamping down as well and increasing bleeding. IM Methergine administered x1 dose (see recycling manager for medication administration). Uterine massage was performed until uterus was deemed firm. weight 3,444g Inspection of the perineum noted an first-degree midline laceration. The laceration was repaired under epidural anesthesia with running 3-0 vicryl rapide, repaired in standards fashion under sterile conditions. Upon re- inspection the patient was homeostatic. Uterus again massaged and found to be firm. The maneuvers for the delayed delivery of body as well as resuscitation were reviewed with family and collective care team. She has been doing well in her course. She is ambulating but now experiencing increased pain to right ankle. Swelling decreased with continued wear of GREGORY hose. Did have a single dose of oxycodone this morning as the pain was significant and not well managed with tylenol and IBU. For her continued inpatient time, prn gabapentin has been added for her as it will be a recommend for breakthrough pain following her discharge. She is tolerating a regular diet. She is urinating without difficulty and her lochia is normal. She will be discharged to home today on day 1 and encouraged IBU, tylenol and stool softeners PRN. She intends to follow up with [facility] in 1 week for telehealth. She has been given precautions to call if she has any new or worsening sx such as fevers, chills, abdominal pain, increasing bleeding, or foul smelling vaginal lochia. preeclamptic precautions reviewed as well. We spent much of the discharge discussing focusing on the events of her delivery. She is processing things well. Encouraged her to continue to talk through the events and I am happy to review them with her at anytime. Additional pain management has been prescribed for her to manage the pain associated with her recent ankle fracture. Reviewed that tylenol and IBU are her first line management medications. If that doesn't work she can try the gabapentin. If gabepentin doesn't manage her pain, she can try the limited supply of oxycodone. She is already established with orthopedics from her previous foot surgery at the begining of . VZV: reactive/immune Rubella: equivacal. Vaccine ordered and to be offered prior to discharge. Blood type: A+ ALLERGIES Allergies Allergy/AdvReac Type Severity Reaction Status Date / Time adhesive tape Allergy Mild Itching Verified 08/23/25 10:15 MEDICATIONS Ambulatory Orders Medication Instructions Recorded Confirmed magnesium oxide 420 mg PO DAILY 01/20/25 vits no.126-ferrous fum 1 tab PO DAILY 08/25/25 28 mg iron-folic acid 800 mcg tablet (Classic ) pyridoxine (vitamin B6) 25 mg 25 mg PO TID 01/20/25 tablet metoclopramide HCl 5 mg tablet 5 mg PO Q6H PRN nausea and 03/16/25 08/25/25 vomiting #90 tabs ascorbate calcium (vitamin C) 500 mg PO DAILY 06/15/25 08/25/25 ferrous sulfate 325 mg PO DAILY 06/15/25 gabapentin 300 mg capsule 300 mg PO TID PRN ankle pain #30 08/26/25 caps oxycodone 5 mg tablet 5 mg PO TID PRN pain #10 tab s 08/26/25 PHYSICAL EXAM AT DISCHARGE Vital Signs: Vital Signs x48h Temp Pulse Resp BP Pulse Ox 08/26/25 08:58 36.8 C 82 16 107/64 99 08/26/25 08:30 36.8 C 82 16 107/64 99 08/26/25 05:00 36.5 C 74 16 104/61 LABS 08/25/25 01:20 08/25/25 01:20 Discharge Plan Discharge Patient Disposition: Home, Self Care Medically Cleared Date:: 08/26/25 Prescriptions: Continued gabapentin 300 mg capsule 300 mg PO TID PRN (Reason: ankle pain) Qty: 30 1RF Rx Instructions: for ankle pain oxycodone 5 mg tablet 5 mg PO TID PRN (Reason: pain) Qty: 10 0RF Rx Instructions: For ankle pain metoclopramide HCl 5 mg tablet 5 mg PO Q6H PRN (Reason: nausea and vomiting) Qty: 90 2RF ferrous sulfate [Iron (ferrous sulfate)] 325 mg PO DAILY ascorbate calcium (vitamin C) 500 mg PO DAILY pyridoxine (vitamin B6) 25 mg tablet 25 mg PO TID magnesium oxide 400 mg magnesium capsule 420 mg PO DAILY Classic 28 mg iron- 800 mcg tablet 1 tab PO DAILY Discontinued aspirin 81 mg tablet 81 mg PO DAILY Activity Restrictions: No Restrictions Diet: Regular Print Language: Polish Patient Instructions: After a Vaginal , How to Breastfeed, Breastfeed Common Questions, Holds, Plugged Milk Ducts Follow-up Care: MADISON STONE MD [Primary Care Provider, Family Practice]
[2025-08-26] MEDS: GABAPENTIN 300 MG CAPSULE PO PRN (13:52)
[2025-08-26] MEDS ORDERED: MEASLES,MUMPS & RUBELLA VACC 0.5 ML VIAL SUBQ ONE (17:18)
[2025-08-26 19:18] VITALS: BP 113/62; TEMP 97.7; O2SAT 100
--- NOTE | 2025-08-26 21:52 | Labor Flowsheet ---
Labor Flowsheet Datetime Report Generated by CPN: 08/26/2025 21:52 Datetime: 08/26/2025 18:32 VITAL SIGNS NBP Sys/Tatiana/Mean (mmHg): 113 : 62 : 74 Pulse: 85 Datetime: 08/26/2025 05:15 Temperature (C): 36.5 Temperature Route: Oral Datetime: 08/25/2025 18:00 Stage of : Recovery Datetime: 08/25/2025 16:35 UTERINE ACTIVITY Monitor Mode: External Frequency (min): 2-1 Quality: Strong Duration (sec): 50-90 Pattern: Normal: <= 5 Contractions in 10 Minutes Resting Tone (Palpate): Relaxed ASSESSMENT A Monitor Mode: External US FHR Baseline Rate : 145 Variability: Moderate 6-25 bpm Decelerations: Variable Comments: RN handholding U/S delivery imminent Oxygen Method: Room Air Datetime: 08/25/2025 16:29 LaborFlag: Labor Datetime: 08/25/2025 16:18 SpO2 (%): 100 Datetime: 08/25/2025 16:15 Pitocin Checklist: At Least 1 Acceleration of 15 bpm x 15 Seconds in 30 Minutes or Adequate Variability; No More than 1 Late Deceleration Occurred in Past 30 Minutes; No More than 2 Variable Decelerations > 60 Seconds in Duration and decreasing >60 bpm in 30 minutes; No More than 5 Uterine Contractions in 10 Minutes for any 20 Minute Interval; Uterus Palpates Soft between Contractions Contraction Comments: pt actively pushing Accelerations: 15X15 Datetime: 08/25/2025 16:00 STAGE 2 Pushing Position: Pushing Lithotomy Pushing Progress: Descent with Pushing Datetime: 08/25/2025 15:58 I/O Interventions: Clarke Discontinued Patient Care Comments: 200ml Datetime: 08/25/2025 15:56 VAGINAL EXAM Dilatation (cm): 10.0 Station: 2 Datetime: 08/25/2025 15:06 Patient Position/Activity: Right Lateral Datetime: 08/25/2025 14:59 Effacement (%): 100 Exam by: Harlan RN Datetime: 08/25/2025 14:30 Actions for Decelerations: Side to Side Datetime: 08/25/2025 11:27 Anesthesia Comments: CLEANER at bedside, decreasing epidural infusion rate due to hypotension Datetime: 08/25/2025 11:23 Medication Comments: ephedrine 5mg IV push Datetime: 08/25/2025 11:20 Notification Reason: Maternal Vital Sign Change Communication Comments: RN call to CLEANER for pt hypotension - telephone order for 5mg ephedrine. CLEANER to come to bedside to asses pt and adjust epidural infusion rate Datetime: 08/25/2025 11:04 Monitor Interventions for FHR: Ultrasound Adjusted COMMUNICATION Communication: RN at Bedside Datetime: 08/25/2025 10:20 MEDICATIONS Pitocin (milliunits): Started @ 2 Datetime: 08/25/2025 09:30 Monitor Interventions for UA: [place] Adjusted Datetime: 08/25/2025 08:42 Membranes Rupture Method: Artificial Amniotic Fluid Color: Light Meconium Amniotic Fluid Amount: Moderate Amniotic Fluid Odor: Normal Datetime: 08/25/2025 06:30 FHR Baseline Changes: No Baseline Change Category: Category I Datetime: 08/25/2025 06:22 Membranes Ruptured Date/Time: 08/25/2025 08:42 Datetime: 08/25/2025 06:14 Anesthesia Level Check: T11 Datetime: 08/25/2025 06:10 PAIN Pain Scale: 0 Pain Presence: None/Denies Pain Type: N/A Pain Goal: 4 Pain Relief Measures: Epidural Given Pain Coping: Talking Through Contractions Pain Assessment Comments: only feels pressure, no pain Datetime: 08/25/2025 06:05 Epidural Procedure: Loading Dose Datetime: 08/25/2025 05:46 PROCEDURE TIME OUT Procedure Type: 0547 Procedure Verify: Correct Patient Identity; Correct Side and Site are Marked; Accurate Procedure Consent Form; Agreement on Procedure to be Done; Correct Patient Position; Safety Precautions Based on Patient History or Medication Use ANESTHESIA Anesthesia Plans: Epidural Epidural Positioning: Sitting Datetime: 08/25/2025 05:45 Respirations: 20 Datetime: 08/25/2025 05:44 Pain Location: Abdomen; Right Groin; Left Groin; Right Hip; Left Hip Datetime: 08/25/2025 05:41 Provider Reviewed Strip: No Provider Notified (Name): CLEANER Mortensen Datetime: 08/25/2025 05:35 PATIENT CARE IV/Blood Work: IV Bolus Given ml @ 500 Datetime: 08/25/2025 05:22 Analgesics/Sedatives: Fentanyl (mcg) @ 50 Datetime: 08/25/2025 00:10 TEACHING Instructional Method: Verbal; Patient Instructed; Family/Support Person Instructed; Verbalized Understanding Plan of Care: Plan of Care Discussed; Vaginal Delivery; Labor Unit Routine: [place] to Room; Call Jacobo; Bed; Visiting Policy; Unit Personnel; Monitoring; Safety/Fall Risk Prevention; Bathroom Privileges; Medications Labor/Induction: Labor Stages; Augmentation; Artificial Rupture of Membranes; Activity Pain Management: PRN Medications; Pain Scale/Goals; Comfort Measures Datetime: 08/24/2025 23:46 Vaginal Bleeding: None Cervix, Consistency: Moderate Cervix, Position: Midposition Vaginal Exam Comments: To admit for labor Datetime: 08/24/2025 23:42 MATERNAL ASSESSMENT Breath Sounds, Left: Clear and Equal Breath Sounds, Right: Clear and Equal Maternal Comments: Pt has R lower leg in an immobilization boot for torned tendon
== END 2025-08-26 19:00 | disposition home or self-care (01) | DRG 807 ==
LOC: WFO 23:12 → FBP 23:13
PROVIDERS: ADMIT Nurse Practitioner; ATTEND Nurse Practitioner
DX: O69.81X0 Labor and delivery complicated by cord around neck, without compression, not applicable or unspecified; S82.891D Other fracture of right lower leg, subsequent encounter for closed fracture with routine healing; O9A.213 Injury, poisoning and certain other consequences of external causes complicating pregnancy, third trimester; Z37.0 Single live birth; O70.0 First degree perineal laceration during delivery; W19.XXXD Unspecified fall, subsequent encounter; O77.0 Labor and delivery complicated by meconium in amniotic fluid; O66.0 Obstructed labor due to shoulder dystocia; Z3A.39 39 weeks gestation of pregnancy